=== PATIENT | female | born 1980 | race Caucasian/White ===

== ENCOUNTER 2019-04-02 21:24 | Emergency (ER) | payer BC ==
--- NOTE | 2019-04-02 21:53 | EDM.PDOC ---
ED HPI GENERAL MEDICAL PROBLEM - General Chief Complaint: Cardiovascular Problem Stated Complaint: heart racing Time Seen by Provider: 04/02/19 21:45 Source of Information: Reports: Patient, Family - History of Present Illness INITIAL COMMENTS - FREE TEXT/NARRATIVE: pt states while sitting at home tonight on the couch and felt her heart start racing and fluttering and had chest pressure in the middle of the chest no chest pain no radiation no nausea or vomiting shortness of breath said this occurred about 3 hours ago patient states that she has had this multiple times over the years and has seen a spring tacker with a normal stress test in the past 3 yrs no cath she saw him approximately a couple months ago where he started her on propranolol 60 mg a day due to PVCs she also has a history of hypothyroidism and takes Synthroid for it she has no changes over the last several months She denies any family history of coronary artery disease and MIs in the family history of PE Onset: Today Duration: Hour(s): Quality: Reports: Pressure Improves with: Reports: None Worsens with: Reports: None Associated Symptoms: Reports: No Other Symptoms - Related Data Allergies Allergy/AdvReac Type Severity Reaction Status Date / Time morphine Allergy Hives Verified 04/02/19 21:46 Home Meds: Home Meds Estradiol 2 tab PO DAILY 04/02/19 [History] Gabapentin [Neurontin] 200 mg PO DAILY 04/02/19 [History] Levothyroxine [Synthroid] 50 mcg PO ACBREAKFAST 04/02/19 [History] Propranolol HCl [Propranolol] 1 tab PO BEDTIME 04/02/19 [History] SUMAtriptan [Imitrex] 50 mg PO ASDIRECTED PRN 04/02/19 [History] lamoTRIgine 1 tab PO DAILY 04/02/19 [History] ED ROS GENERAL - Review of Systems Review Of Systems: See Below Constitutional: Reports: No Symptoms Respiratory: Reports: No Symptoms Cardiovascular: Reports: Palpitations. Denies: Chest Pain, Blood Pressure Problem, Claudication, Dyspnea on Exertion, Edema, Lightheadedness, Orthopnea, PND, Syncope Endocrine: Reports: No Symptoms GI/Abdominal: Reports: No Symptoms Musculoskeletal: Reports: No Symptoms Skin: Reports: No Symptoms Neurological: Reports: No Symptoms Psychiatric: Denies: Agitation, Anxiety Hematologic/Lymphatic: Reports: No Symptoms Immunologic: Reports: No Symptoms ED EXAM, GENERAL - Physical Exam Exam: See Below Exam Limited By: No Limitations General Appearance: Alert, WD/WN, No Apparent Distress Nose: Normal Inspection Throat/Mouth: Normal Inspection, Normal Lips, Normal Teeth Head: Atraumatic, Normocephalic Neck: Normal Inspection, Supple, Non-Tender, Full Range of Motion, Other ( Normal palpation of the thyroid). No: Carotid Bruit, Limited Range of Motion, Lymphadenopathy (L) Respiratory/Chest: No Respiratory Distress, Lungs Clear, Normal Breath Sounds, No Accessory Muscle Use, Chest Non-Tender Cardiovascular: Normal Peripheral Pulses, Regular Rate, Rhythm, No Edema, No Gallop (Noted mild hypertension vital signs patient has no end organ signs and symptoms no history of hypertension), No JVD, No Murmur, No Rub GI/Abdominal: Normal Bowel Sounds, Soft, Non-Tender, No Organomegaly Extremities: Normal Inspection, Normal Range of Motion, Non-Tender, No Pedal Edema, Normal Capillary Refill Neurological: Alert, Oriented, CN II-XII Intact, Normal Cognition, Normal Gait, Normal Reflexes, No Motor/Sensory Deficits Skin Exam: Warm, Dry, Intact, Normal Color, No Rash Course - Vital Signs Last Recorded V/S: Last Vital Signs Temp 36.1 C 04/02/19 21:48 Pulse 74 04/02/19 21:48 Resp 18 04/02/19 21:48 BP 154/91 H 04/02/19 21:48 Pulse Ox 99 04/02/19 21:48 - Orders/Labs/Meds Orders: Active Orders 24 hr Category Date Time Status EKG 12 Lead [EKG Documentation Completion] [RC] STAT Care 04/02/19 22:00 Active Chest 2V [CR] Stat Exams 04/02/19 21:47 Taken Labs: Laboratory Tests 04/02/19 04/02/19 Range/Units 21:56 21:56 WBC 12.2 H (4.0-10.0) x10^3/uL RBC 4.52 (4.00-5.50) x10^6/uL Hgb 13.7 (12.0-16.0) g/dL Hct 41.3 (33.0-47.0) % MCV 91.4 (78.0-93.0) fL MCH 30.3 (26.0-32.0) pg MCHC 33.2 (32.0-36.0) g/dL RDW Coeff of Chey 13.4 (10.0-15.0) % Plt Count 359 (130-400) x10^3/uL Sodium 144 (136-145) mmol/L Potassium 3.1 L (3.5-5.1) mmol/L Chloride 105 (98-107) mmol/L Carbon Dioxide 29 (21-32) mmol/L Anion Gap 13.1 (10-20) mmol/L BUN 10 (7-18) mg/dL Creatinine 0.9 (0.55-1.02) mg/dL Est Cr Clr Drug Dosing TNP Estimated GFR (MDRD) > 60 Glucose 96 (74-106) mg/dL Calcium 9.0 (8.5-10.1) mg/dL Troponin I < 0.017 (<=0.056) ng/mL - Re-Assessments/Exams Free Text/Narrative Re-Assessment/Exam: 04/02/19 21:54 CBC BMP EKG chest x-ray Departure - Departure Time of Disposition: 22:30 Disposition: Home, Self-Care 01 Condition: Good Clinical Impression: Palpitations, Hypokalemia Referrals: Oralia aKur DO [Primary Care Provider] - Forms: ED Department Discharge Additional Instructions: Patient with the normal white count and normal troponin potassium at 3.1 will be given 20 mEq potassium by mouth along with 400 mg of Mag-Ox by mouth patient is instructed follow-up primary care provider in the next 24-48 hours return to the emergency room if anything changes or gets worse patient is also instructed to follow up with her spring tacker in the next 24-48 hours patient gives verbal understanding also educated on signs and symptoms to return to the emergency room - Problem List & Annotations (1) Hypokalemia SNOMED Code(s): 97302529 Code(s): E87.6 - HYPOKALEMIA Status: Acute Current Visit: Yes (2) Palpitations SNOMED Code(s): 40159212 Code(s): R00.2 - PALPITATIONS Status: Acute Current Visit: Yes - My Orders Last 24 Hours: My Active Orders 04/02/19 21:47 Chest 2V [CR] Stat 04/02/19 22:00 EKG 12 Lead [EKG Documentation Completion] [RC] STAT - Assessment/Plan Last 24 Hours: My Active Orders 04/02/19 21:47 Chest 2V [CR] Stat 04/02/19 22:00 EKG 12 Lead [EKG Documentation Completion] [RC] STAT Plan: Patient has been in instructed to follow with primary care fire next 24-48 hours and see her spring tacker as well patient also instructions on symptoms to return to emergency room
[2019-04-02 22:23] LABS: CHLORIDE,CL 105 mmol/L (98-107); SODIUM,NA 144 mmol/L (136-145)
[2019-04-02 22:24] LABS: ANION GAP 13.1 mmol/L (10-20)
[2019-04-02] MEDS ORDERED: Potassium Chloride 10 MEQ Tab.ER PO ONE (22:36)
[2019-04-02] MEDS ORDERED: Magnesium Oxide 400 MG Tab PO ONE (22:42)
--- NOTE | 2019-04-03 08:57 | CR ---
[id number] RAD/RAD Chest PA And Lateral EXAM: RAD Chest PA And Lateral INDICATION: CHEST PRESSURE. COMPARISON: None. DISCUSSION: Cardiomediastinal silhouette is normal in size and contour. No infiltrate, effusion, pneumothorax, or edema. IMPRESSION: No acute cardiopulmonary abnormality. Wilfrido Morgan DO 04/03/19 0855 Thank you for allowing us to participate in the care of your patient.
== END 2019-04-02 22:54 | disposition home or self-care (01) ==
LOC: VM.ED 21:24
DX: E87.6 Hypokalemia (principal); Z88.5 Allergy status to narcotic agent; Z79.899 Other long term (current) drug therapy
CPT/HCPCS: 36415; 71046; 80048; 84484; 85027; 93005; 99285-25; A9270-GY